=== PATIENT | male | born 1970 | race Native Hawaiian/Other Pacific Islander ===

== ENCOUNTER → 2017-01-04 | Outpatient (REF) | payer OTHER ==
[2017-01-10 14:14] LABS: D001-IgE D pteronyssinus 1.72 kU/L (Class III); E001-IgE Cat Epith/Dander < 0.10 kU/L (Class 0); E005-IgE Dog Dander 0.65 kU/L (Class II); G002-IgE Bermuda Grass 0.26 kU/L (Class 0/I); G008-IgE Kentucky Bluegrass 0.22 kU/L (Class 0/I); M001-IgE Penicillium chrysogen < 0.10 kU/L (Class 0); M002 IgE Cladosporium herbaru 0.23 kU/L (Class 0/I); M003 IgE Aspergillus fumigatu 0.28 kU/L (Class 0/I); M006-IgE Alternaria alternata 5.85 kU/L (Class IV); T001-IgE Maple/Box Elder 0.35 kU/L (Class I); T007-IgE Oak, White 0.18 kU/L (Class 0/I); T008-IgE Elm, American 0.35 kU/L (Class I); T015-IgE Ash, White 0.52 kU/L (Class I); T041-IgE Hickory, White 0.13 kU/L (Class 0/I); W001-IgE Ragweed, Short 0.22 kU/L (Class 0/I); W009-IgE Plantain, English 0.24 kU/L (Class 0/I); W018-IgE Sheep Sorrel 0.29 kU/L (Class 0/I)
== END ==
LOC: M LAB REF 14:55
PROVIDERS: ATTEND Internal Medicine Pulmonary Disease
DX: R05 Cough (principal)

== ENCOUNTER → 2017-01-31 | Outpatient (CLI) | payer OTHER ==
[~2017-01-31] MED LIST: METHACHOLINE KIT (J7674) INH ONE
--- NOTE | 2017-01-31 08:36 | PFTRPT ---
Tech: Phoenix GODINEZ RRT Age: 46 Sex: Male Race: <Unspecified> Height: 66.00 Inches Weight: 187.00 Lbs BSA: 1.94 Diagnosis: R05 METHACHOLINE CHALLENGE REPORT: ORDERING PROVIDER: Hermila Becerril MD DATE OF SERVICE: 01/31/17 INTERPRETATION: The study was of excellent technical quality. Under protocol, methacholine was administered. Even after a maximal dose of 25 mg (188.875 CDUs) of methacholine , no provocation dose was ever achieved. Flow rates returned to baseline post bronchodilator administration. IMPRESSION: Negative methacholine challenge study. MTDD
== END ==
LOC: M CARPUL 07:32
PROVIDERS: ATTEND Internal Medicine Pulmonary Disease
DX: R05 Cough (principal)
CPT/HCPCS: 94070; J7674